=== PATIENT | female | born 1955 | race Caucasian/White ===

== ENCOUNTER 2016-07-14 10:34 | Inpatient (IN) | payer OTHER ==
[2016-07-14] MEDS ORDERED: VOLTAREN100 GM TP (12:37)
[2016-07-14 12:38] LABS: HEMOGLOBIN 10.2 gm/dl (12.3-15.3); RED BLOOD COUNT 4.44 M/UL (4.00-5.10); WHITE BLOOD COUNT 11.8 K/UL (4.5-11.0)
[2016-07-14] MEDS ORDERED: ALPRAZOLAM0.5 MG PO (12:40)
[2016-07-14] MEDS ORDERED: CLINDAMYCIN HC300 MG PO (12:42)
[2016-07-14] MEDS ORDERED: OMEPRAZOLE20 MG PO (12:43)
[2016-07-14] MEDS ORDERED: NORCO 10-325 T1 EACH PO (12:43)
[2016-07-14] MEDS ORDERED: ONDANSETRON ODT8 MG PO (12:44)
[2016-07-14] MEDS ORDERED: NEXIUM40 MG PO (12:45)
[2016-07-14] MEDS ORDERED: ABILIFY2 MG PO (12:45)
[2016-07-14] MEDS ORDERED: TRAZODONE HCL100 MG PO (12:46)
[2016-07-14] MEDS ORDERED: BREO ELLIPTA 11 EACH INH (12:47)
[2016-07-14] MEDS ORDERED: ASPIR 8181 MG PO (12:47)
[2016-07-14] MEDS ORDERED: ALL DAY ALLERGY10 M2 PO (12:48)
[2016-07-14] MEDS ORDERED: LASIX 40 MG TAB40 MG PO (12:49)
[2016-07-14] MEDS ORDERED: JANUVIA50 MG PO (12:50)
[2016-07-14] MEDS ORDERED: LEVOTHYROXINE25 MCG PO (12:50)
[2016-07-14] MEDS ORDERED: METOPROLOL TART25 MG PO (12:51)
[2016-07-14] MEDS ORDERED: NITRO-TIME9 MG PO (12:52)
[2016-07-14] MEDS ORDERED: PRISTIQ 50 MG T50 MG PO (12:52)
[2016-07-14] MEDS ORDERED: VENTOLIN HFA 66.7 GM INH (12:53)
[2016-07-14] MEDS ORDERED: ZOVIRAX 200 MG200 MG PO (12:54)
[2016-07-14] MEDS ORDERED: RANEXA1000 MG PO (12:54)
[2016-07-14] MEDS ORDERED: PLAVIX 75 MG TA75 MG PO (12:55)
[2016-07-14] MEDS ORDERED: LIPITOR TAB 2020 MG PO (12:55)
[2016-07-14] MEDS ORDERED: TIZANIDINE HCL4 M1 PO (12:56)
[2016-07-14] MEDS ORDERED: MIRTAZAPINE45 MG PO (12:56)
[2016-07-14] MEDS ORDERED: VENLAFAXINE HC150 MG PO (12:57)
[2016-07-14 13:25] LABS: BUN/CREATININE RATIO 14 (0-10)
[2016-07-15 06:02] LABS: HEMOGLOBIN 9.8 gm/dl (12.3-15.3); RED BLOOD COUNT 4.29 M/UL (4.00-5.10); WHITE BLOOD COUNT 11.4 K/UL (4.5-11.0)
[2016-07-15 06:11] LABS: BUN/CREATININE RATIO 11 (0-10)
[2016-07-16 04:45] LABS: HEMOGLOBIN 9.4 gm/dl (12.3-15.3); RED BLOOD COUNT 4.15 M/UL (4.00-5.10); WHITE BLOOD COUNT 9.4 K/UL (4.5-11.0)
[2016-07-16 05:10] LABS: BUN/CREATININE RATIO 11 (0-10)
[2016-07-17 06:36] LABS: HEMOGLOBIN 9.2 gm/dl (12.3-15.3); RED BLOOD COUNT 4.08 M/UL (4.00-5.10)
[2016-07-17 07:00] LABS: BUN/CREATININE RATIO 11 (0-10)
[2016-07-17] MEDS ORDERED: NORVASC 5 MG TAB5 MG PO (16:16)
[2016-07-17] MEDS ORDERED: CLINDAMYCIN HC300 MG PO (16:17)
[2016-07-17] MEDS ORDERED: FERROUS SULFAT325 MG PO (16:18)
[2016-07-17] MEDS ORDERED: ENSURE PLUS237 ML PO (16:21)
[2016-07-17] MEDS ORDERED: ALBUTEROL0.63 MG/3 INH (17:58)
== END 2016-07-17 17:40 | disposition home or self-care (01) | DRG 137 ==
LOC: ZOBSOF 11:52 → M/S 11:52
PROVIDERS: Dentist Oral and Maxillofacial Surgery; Physician Assistant; ADMIT Internal Medicine
PROC: 0CDWXZ0 Extraction of Upper Tooth, Single, External Approach (ICD-10-PCS; 2016-07-14)
PROC: 0CDXXZ1 Extraction of Lower Tooth, Multiple, External Approach (ICD-10-PCS; 2016-07-14)
PROC: 0W950ZZ Drainage of Lower Jaw, Open Approach (ICD-10-PCS; principal; 2016-07-14 12:45)
DX: K12.2 Cellulitis and abscess of mouth (principal); I42.9 Cardiomyopathy, unspecified; I13.0 Hypertensive heart and chronic kidney disease with heart failure and stage 1 through stage 4 chronic kidney disease, or unspecified chronic kidney disease; I50.22 Chronic systolic (congestive) heart failure; I12.9 Hypertensive chronic kidney disease with stage 1 through stage 4 chronic kidney disease, or unspecified chronic kidney disease; E11.22 Type 2 diabetes mellitus with diabetic chronic kidney disease; N18.9 Chronic kidney disease, unspecified; G47.33 Obstructive sleep apnea (adult) (pediatric); R09.02 Hypoxemia; J44.9 Chronic obstructive pulmonary disease, unspecified; I44.7 Left bundle-branch block, unspecified; E66.9 Obesity, unspecified; K02.9 Dental caries, unspecified; K05.6 Periodontal disease, unspecified; I34.1 Nonrheumatic mitral (valve) prolapse; D50.9 Iron deficiency anemia, unspecified; E03.9 Hypothyroidism, unspecified; E78.5 Hyperlipidemia, unspecified; F41.9 Anxiety disorder, unspecified; E53.8 Deficiency of other specified B group vitamins; Z99.81 Dependence on supplemental oxygen; Z90.710 Acquired absence of both cervix and uterus; Z98.61 Coronary angioplasty status; Z79.82 Long term (current) use of aspirin; Z79.84 Long term (current) use of oral hypoglycemic drugs; Z79.899 Other long term (current) drug therapy; Z87.891 Personal history of nicotine dependence; Z80.9 Family history of malignant neoplasm, unspecified; Z82.49 Family history of ischemic heart disease and other diseases of the circulatory system; Z68.29 Body mass index [BMI] 29.0-29.9, adult
CPT/HCPCS: 36415; 80048; 80053; 82607; 82728; 82746; 82962; 83036; 83540; 83550; 83735; 84443; 85025; 85027; 85610; 86140; 87040; 87070; 87205; 93005; J0295; J0360; J0670; J2250; J2270; J2370; J3010; J7030; J7050; J7120